=== PATIENT | female | born 1965 | race Hispanic/Latino ===

== ENCOUNTER 2024-02-07 16:33 | Emergency (ER) | payer OTHER, SELFPAY ==
[2024-02-07 16:44] VITALS: BP 143/83; PULSE 84; RESP 16; TEMP 36.6; O2SAT 99
--- NOTE | 2024-02-07 16:45 | ED.URI ---
HPI - URI/Sore Throat General Chief Complaint: Upper Respiratory Infection Stated Complaint: RUNNY NOSE/SNEEZING/EYE REDNESS Time Seen by Provider: 02/07/24 16:45 Source: patient Mode of arrival: ambulatory Limitations: no limitations History of Present Illness HPI Narrative: 58-year-old female presents with complaint bilateral eyes itching, mild redness, clear drainage, sneezing, throat scratchy with postnasal drainage, runny nose for 2-3 days. Yesterday noticed increased redness to right eye. No pain or vision changes. States she has been sneezing a lot. Took Zyrtec yesterday. All systems reviewed and negative except as noted above. Related Data Allergies Allergy/AdvReac Type Severity Reaction Status Date / Time No Known Allergies Allergy Verified 02/07/24 16:58 Review of Systems Review of Systems: CONSTITUTIONAL: Denies fever, chills, or sweats. EYES: Denies visual changes reports redness, itching, clear drainage. Reports redness to right day. ENT: Reports rhinorrhea, sneezing, postnasal drainage. Denies congestion, sore throat, or otalgia. CARDIOVASCULAR: Denies chest pain, palpitations, or edema. RESPIRATORY: Denies cough or dyspnea. GASTROINTESTINAL: Denies abdominal pain, nausea, vomiting, or diarrhea. GENITOURINARY: Denies dysuria or hematuria. SKIN: Denies rash or itching. MUSCULOSKELETAL: Denies back pain, joint pain, or myalgia. NEUROLOGIC: Denies headache, numbness, or weakness. PSYCHIATRIC: Denies anxiety or depression. All other systems reviewed are negative, except as documented in HPI. PMFSH Comments At time of signature, agree with nursing past medical, surgical, social and family history. There is no relevant family history pertinent to the presenting complaint. Exam Narrative: GENERAL: This is a well-nourished, well-developed patient, in no apparent distress. HEAD: normocephalic, atraumatic. EYES: PERRL. Sclera clear/white. No drainage noted at this time. Subconjunctival hemorrhage to right eye. Vision is grossly intact. EARS: External ears normal, auditory canals clear and without drainage, TMs normal without perforation. Hearing grossly intact. NOSE: External nose normal with clear nasal drainage. No erythema or swelling to nares. THROAT: Mucous membranes moist, clear postnasal drainage. NECK: Neck supple, non-tender without lymphadenopathy, masses or thyromegaly. CARDIOVASCULAR: Regular rate and rhythm without murmurs, gallops, or rubs. RESPIRATORY: Clear to auscultation. Breath sounds equal bilaterally. No wheezes, rales, or rhonchi. SKIN: warm, Dry, intact with no suspicious lesions or rash, good texture and turgor. NEURO: awake, alert, and oriented to person, place and time. There were no obvious focal neurologic abnormalities. EXTREMITIES: No joint tenderness, effusion, or edema noted. Course Course Level of Care: Express Care Visit Vital Signs Vital signs: Vital Signs Temperature 36.6 C 02/07/24 16:44 Pulse Rate 84 02/07/24 16:44 Respiratory Rate 16 02/07/24 16:44 Blood Pressure 143/83 H 02/07/24 16:44 Pulse Oximetry 99 02/07/24 16:44 Temperature 36.6 C 02/07/24 16:44 Pulse Rate 84 02/07/24 16:44 Respiratory Rate 16 02/07/24 16:44 Blood Pressure 143/83 H 02/07/24 16:44 Pulse Oximetry 99 02/07/24 16:44 Reviewed MDM - URI/Sore Throat MDM Narrative Medical decision making narrative: Patient is aware of diagnosis, understands and agrees to treatment plan. Anticipatory guidance given. Patient agrees to follow-up as directed and is aware of reasons to seek care at the emergency department. Portions of this record may have been created with voice recognition software Differential Diagnosis Differential diagnosis: Likely upper respiratory infection and sinusitis Discharge Plan Discharge Clinical Impression: Subconjunctival hemorrhage of right eye, Allergic rhinosinusitis, Acute allergic conjunctivitis of both eyes Patient
== END 2024-02-07 17:00 | disposition home or self-care (01) ==
PROVIDERS: Emergency Provider Nurse Practitioner Family
DX: H11.31 Conjunctival hemorrhage, right eye (principal); J30.9 Allergic rhinitis, unspecified; H10.13 Acute atopic conjunctivitis, bilateral
CPT/HCPCS: 99213; G0463